=== PATIENT | male | born 1935 | race African-American/Black ===

== ENCOUNTER 2018-06-18 02:04 | Inpatient (IN) ==
[2018-06-18 02:48] LABS: Basophils # 0.1 10*3/uL (0.0-0.2); Basophils % 0.7 % (0.0-0.8); Eosinophils # 0.2 10*3/uL (0.0-0.87); Eosinophils % 1.6 % (0.00-10.9); Hematocrit 30.1 VOL% (42.0-52.0); Hemoglobin 9.5 GM/DL (14.0-18.0); Immature Granulocytes % 0.5 %; Immature Granulocytes Absolute 0.07 #; Lymphocytes # 1.4 10*3/uL (1.4-4.0); Lymphocytes % 10.8 % (21.2-54.2); Mean Corpuscular HGB Conc 31.6 GM/DL (32-36); Mean Corpuscular Hemoglobin 28 PG (27-34); Mean Corpuscular Volume 88.3 FL (87-102); Mean Platelet Volume 10.4 FL (9.6-12.0); Monocytes # 0.7 10*3/uL (0.11-0.8); Neutrophils # 10.5 10*3/uL (1.4-7.4); Neutrophils % 81.4 % (38.7-73.9); Platelet Count 342 T/CUMM (130-400); Red Blood Count 3.41 MC/CUMM (3.8-5.5); Red Cell Distribution Width 19.2 % (9.3-17.3); White Blood Count 12.9 T/CUMM (4-12)
[2018-06-18 02:50] LABS: VBG Base Excess -0.7 MEQ/L (0-4); VBG HCO3 23.4 MEQ/L (24-28); VBG Oxygen Saturation 69.5 %; VBG PCO2 53.6 MMHG (41-51); VBG PH 7.301; VBG PO2 43.7 MMHG (17-40)
[2018-06-18] MEDS ORDERED: ALBUTEROL NEB SOLN 5 MG/ML 20 ML/BOTTLE CONT NEB STA (02:53)
[2018-06-18 02:57] LABS: PT Patient Result 10.6 SECS; Partial Thromboplastin Time 22.5 SECS (0-40)
[2018-06-18 03:08] LABS: Bilirubin,Total 0.5 MG/DL (0.2-1.0); Calcium 8.3 MG/DL (8.5-10.1); Osmolality,Calculated 284.3 MOS/KG (273-304); Total Protein 7.1 G/DL (6.4-8.3)
[2018-06-18] MEDS ORDERED: FUROSEMIDE 100 MG/10 ML VIAL IV STA (03:19)
[2018-06-18] MEDS ORDERED: CEFEPIME 2,000 MG in SODIUM CHLORIDE 0.9% 100 ML IV STA ×2 (04:04→04:09)
[2018-06-18] MEDS ORDERED: VANCOMYCIN INJ 1,000 MG in SODIUM CHLORIDE 0.9% 250 ML IV STA (04:04)
[2018-06-18] MEDS ORDERED: AZITHROMYCIN 250 MG TABLET PO STA (04:10)
[2018-06-18] MEDS ORDERED: CEFEPIME 2,000 MG in SYRINGE 1 EACH IV STA (04:34)
[2018-06-18] MEDS ORDERED: ONDANSETRON 4 MG/2 ML VIAL IV PRN (05:16)
[2018-06-18] MEDS ORDERED: ACETAMINOPHEN 325 MG TABLET PO PRN (05:16)
[2018-06-18] MEDS ORDERED: GLUCAGON 1 MG VIAL IM PRN (05:16)
[2018-06-18] MEDS ORDERED: DOCUSATE SODIUM 100 MG CAPSULE PO PRN (05:16)
[2018-06-18] MEDS ORDERED: DEXTROSE 50% 25 GM/50 ML SYRINGE IV PRN (05:16)
[2018-06-18] MEDS ORDERED: MAGNESIUM SULF RIDER 4 GM in PREMIX 1 EACH IV PRN (05:23)
[2018-06-18] MEDS ORDERED: MAGNESIUM SULF RIDER 2 GM in PREMIX 1 EACH IV PRN (05:23)
[2018-06-18] MEDS ORDERED: ALBUTEROL 2.5 MG/3 ML NEB RESP TX PRN (05:27)
[2018-06-18] MEDS ORDERED: cefTRIAXone 1,000 MG in SYRINGE 1 EACH IV SCH (05:30)
[2018-06-18 05:52] LABS: Lactic Acid 2.1 MMOL/L (0.4-2.0)
[2018-06-18] MEDS: methylPREDNISolone SOD SUC 40 MG/1 ML VIAL IV SCH ×3 (07:17→21:01)
[2018-06-18] MEDS: ALBUTEROL/IPRATROPIUM 3 ML NEB RESP TX SCH ×3 (07:19→20:30)
[2018-06-18] MEDS: LEVOFLOXACIN INJ 750 MG in PREMIX 1 EACH IV SCH (07:24)
[2018-06-18] MEDS ORDERED: INFLUENZA VIRUS VACCINE 0.5 ML SYRINGE IM ONE (09:00)
[2018-06-18] MEDS ORDERED: PNEUMOCOCCAL VACCINE (13 VALENT) 0.5 ML SYRINGE IM ONE (09:00)
[2018-06-18] MEDS: INSULIN LISPRO 100 UNIT/ML SUBCUT SCH ×4 (09:22→20:52)
[2018-06-18] MEDS: ENOXAPARIN 40 MG/0.4 ML SYRINGE SUBCUT SCH (09:23)
[2018-06-18] MEDS: PIPERACILLIN/TAZOBACTAM 3,375 MG in SODIUM CHLORIDE 0.9% 100 ML IV SCH ×2 (11:27→15:05)
[2018-06-18] MEDS: MULTIVITAMIN (INTRINSIC) CAPSULE PO SCH (13:27)
[2018-06-18] MEDS: TAMSULOSIN 0.4 MG CAPSULE PO SCH (13:27)
[2018-06-18] MEDS: MAGNESIUM OXIDE 400 MG TABLET PO SCH ×2 (13:27→20:49)
[2018-06-18] MEDS: MEGESTROL 40 MG TABLET PO SCH (13:27)
[2018-06-18] MEDS: GLIMEPIRIDE 2 MG TABLET PO SCH (13:28)
[2018-06-18] MEDS: FUROSEMIDE 40 MG/4 ML VIAL IV SCH (15:09)
[2018-06-18] MEDS ORDERED: INSULIN GLARGINE 100 UNIT/ML SUBCUT SCH (21:00)
[2018-06-18] MEDS ORDERED: ATORVASTATIN 10 MG TABLET PO SCH (21:00)
[2018-06-19] MEDS: PIPERACILLIN/TAZOBACTAM 3,375 MG in SODIUM CHLORIDE 0.9% 100 ML IV SCH ×2 (00:55→08:27)
[2018-06-19] MEDS: ALBUTEROL/IPRATROPIUM 3 ML NEB RESP TX SCH ×2 (01:35→07:22)
[2018-06-19] MEDS: methylPREDNISolone SOD SUC 40 MG/1 ML VIAL IV SCH (05:02)
[2018-06-19] MEDS: LEVOFLOXACIN INJ 750 MG in PREMIX 1 EACH IV SCH (05:06)
[2018-06-19] MEDS ORDERED: AZITHROMYCIN INJ 500 MG in SODIUM CHLORIDE 0.9% 250 ML IV SCH (06:00)
[2018-06-19 06:24] LABS: Basophils % 0.1 % (0.0-0.8); Hematocrit 26.4 VOL% (42.0-52.0); Hemoglobin 8.7 GM/DL (14.0-18.0); Immature Granulocytes % 0.7 %; Immature Granulocytes Absolute 0.08 #; Lymphocytes # 0.8 10*3/uL (1.4-4.0); Lymphocytes % 7.2 % (21.2-54.2); Mean Corpuscular Hemoglobin 29 PG (27-34); Mean Corpuscular Volume 87.7 FL (87-102); Mean Platelet Volume 10.8 FL (9.6-12.0); Monocytes # 0.3 10*3/uL (0.11-0.8); Monocytes % 2.7 % (1.7-12.7); Neutrophils # 10.5 10*3/uL (1.4-7.4); Neutrophils % 89.3 % (38.7-73.9); Platelet Count 319 T/CUMM (130-400); Red Blood Count 3.01 MC/CUMM (3.8-5.5); Red Cell Distribution Width 19.8 % (9.3-17.3); White Blood Count 11.7 T/CUMM (4-12)
[2018-06-19 06:33] LABS: Potassium 4.3 MMOL/L (3.5-5.1)
[2018-06-19 07:54] VITALS: BP 138/84
[2018-06-19] MEDS: ENOXAPARIN 40 MG/0.4 ML SYRINGE SUBCUT SCH (08:27)
[2018-06-19] MEDS: INSULIN LISPRO 100 UNIT/ML SUBCUT SCH (08:27)
[2018-06-19] MEDS: FUROSEMIDE 40 MG/4 ML VIAL IV SCH (08:27)
[2018-06-19] MEDS: TAMSULOSIN 0.4 MG CAPSULE PO SCH (08:28)
[2018-06-19] MEDS: MAGNESIUM OXIDE 400 MG TABLET PO SCH (08:28)
[2018-06-19] MEDS: MULTIVITAMIN (INTRINSIC) CAPSULE PO SCH (08:28)
[2018-06-19] MEDS: GLIMEPIRIDE 2 MG TABLET PO SCH (08:28)
[2018-06-19] MEDS: MEGESTROL 40 MG TABLET PO SCH (08:28)
== END 2018-06-19 11:08 | disposition home or self-care (01) | DRG 291 ==
LOC: EDUNIT# → EDBD → N.ED 02:04 → N.EDINP 05:10 → N.3E 05:28
PROVIDERS: ADMIT Internal Medicine; ATTEND Internal Medicine

== ENCOUNTER 2018-07-13 03:30 | Observation (INO) | END 2018-07-13 23:59 | disposition hospice, home (50) | LOC: N.ADMINP | PROVIDERS: ADMIT Hospitalist; ATTEND Hospitalist ==

== ENCOUNTER 2018-12-01 09:59 | Observation (INO) ==
[~2018-12-01 09:59] MED LIST: DIAZEPAM 5 MG TABLET PO ONE; ceFAZolin 1,000 MG VIAL IRRIG ONE; ceFAZolin 1,000 MG in SYRINGE 1 EACH IV ONE; diphenhydrAMINE CAP 25 MG CAPSULE PO ONE
[2018-12-01 11:08] LABS: Basophils % 0.6 % (0.0-0.8); Eosinophils # 0.2 10*3/uL (0.0-0.87); Hematocrit 26.4 VOL% (42.0-52.0); Hemoglobin 8.6 GM/DL (14.0-18.0); Immature Granulocytes % 0.3 %; Immature Granulocytes Absolute 0.02 #; Lymphocytes # 1.4 10*3/uL (1.4-4.0); Lymphocytes % 21.9 % (21.2-54.2); Mean Corpuscular HGB Conc 32.6 GM/DL (32-36); Mean Corpuscular Volume 94.3 FL (87-102); Mean Platelet Volume 9.7 FL (9.6-12.0); Monocytes % 7.6 % (1.7-12.7); Neutrophils % 66.6 % (38.7-73.9); Platelet Count 332 T/CUMM (130-400); Red Cell Distribution Width 19.9 % (9.3-17.3); White Blood Count 6.3 T/CUMM (4-12)
[2018-12-01 11:18] LABS: PT Patient Result 10.8 SECS
[2018-12-01 11:28] LABS: Albumin 3.4 G/DL (3.4-5.0); Bilirubin,Total 0.8 MG/DL (0.2-1.0); Calcium 9.2 MG/DL (8.5-10.1); Osmolality,Calculated 281.4 MOS/KG (273-304); Total Protein 8.3 G/DL (6.4-8.3)
[2018-12-01] MEDS ORDERED: diphenhydrAMINE CAP 25 MG CAPSULE ONE (11:53)
[2018-12-01] MEDS: SODIUM CHLORIDE 0.9% 1,000 ML IV SCH (11:59)
[2018-12-01] MEDS ORDERED: LIDOCAINE 1%/EPI INJ 20 ML VIAL ONE (12:42)
[2018-12-01] MEDS ORDERED: ceFAZolin 1,000 MG VIAL ONE (12:42)
[2018-12-01] MEDS ORDERED: TISSUE ADHESIVE 1 EACH APPLICATOR TOP ONE (13:26)
[2018-12-01] MEDS ORDERED: ACETAMINOPHEN 325 MG TABLET PO PRN (13:31)
[2018-12-01] MEDS ORDERED: BUDESONIDE/FORMOTEROL 160-4.5 INHALER 6 GM INH PRN (13:32)
[2018-12-01] MEDS ORDERED: LIDOCAINE 2% 5 ML VIAL ONE (13:46)
[2018-12-01] MEDS ORDERED: fentaNYL 100 MCG/2 ML VIAL ONE (13:46)
[2018-12-01] MEDS ORDERED: PROPOFOL 200 MG/20 ML VIAL IV ONE (13:46)
[2018-12-01] MEDS ORDERED: ALBUTEROL 2.5 MG/3 ML NEB RESP TX PRN (19:00)
[2018-12-01 19:10] LABS: Basophils % 0.6 % (0.0-0.8); Eosinophils # 0.2 10*3/uL (0.0-0.87); Eosinophils % 2.4 % (0.00-10.9); Hematocrit 24.6 VOL% (42.0-52.0); Immature Granulocytes % 0.4 %; Immature Granulocytes Absolute 0.03 #; Lymphocytes # 1.1 10*3/uL (1.4-4.0); Lymphocytes % 15.4 % (21.2-54.2); Mean Corpuscular HGB Conc 32.5 GM/DL (32-36); Mean Corpuscular Volume 92.8 FL (87-102); Mean Platelet Volume 9.7 FL (9.6-12.0); Monocytes % 7.1 % (1.7-12.7); Neutrophils % 74.1 % (38.7-73.9); Platelet Count 302 T/CUMM (130-400); Red Blood Count 2.65 MC/CUMM (3.8-5.5); Red Cell Distribution Width 19.7 % (9.3-17.3); White Blood Count 7.2 T/CUMM (4-12)
[2018-12-01 19:27] LABS: Folate > 24.0 NG/ML (5.4-24.0); Vitamin B12 413 PG/ML (211-911)
[2018-12-01] MEDS: metFORMIN 500 MG TABLET PO SCH (21:45)
[2018-12-01] MEDS: TAMSULOSIN 0.4 MG CAPSULE PO SCH (21:45)
[2018-12-01] MEDS: CARVEDILOL 6.25 MG TABLET PO SCH (21:45)
[2018-12-01] MEDS: INSULIN GLARGINE 100 UNIT/ML SUBCUT SCH (21:45)
[2018-12-01] MEDS: ATORVASTATIN 10 MG TABLET PO SCH (21:46)
[2018-12-01] MEDS: ASCORBIC ACID 500 MG TABLET PO SCH (21:46)
[2018-12-01 22:10] LABS: Sedimentation Rate-Westergren 47 MM/HR (0-20)
[2018-12-01] MEDS: oxyCODONE/ACETAMINOPHEN 5-325 MG TABLET PO PRN (23:08)
[2018-12-02 05:02] LABS: Basophils % 0.5 % (0.0-0.8); Eosinophils # 0.2 10*3/uL (0.0-0.87); Eosinophils % 2.7 % (0.00-10.9); Hematocrit 22.7 VOL% (42.0-52.0); Hemoglobin 7.6 GM/DL (14.0-18.0); Immature Granulocytes % 0.5 %; Immature Granulocytes Absolute 0.03 #; Lymphocytes # 1.4 10*3/uL (1.4-4.0); Lymphocytes % 21.7 % (21.2-54.2); Mean Corpuscular HGB Conc 33.5 GM/DL (32-36); Mean Corpuscular Volume 93.4 FL (87-102); Mean Platelet Volume 9.5 FL (9.6-12.0); Monocytes % 8.8 % (1.7-12.7); Neutrophils % 65.8 % (38.7-73.9); Platelet Count 278 T/CUMM (130-400); Red Blood Count 2.43 MC/CUMM (3.8-5.5); White Blood Count 6.6 T/CUMM (4-12)
[2018-12-02 05:26] LABS: Calcium 8.5 MG/DL (8.5-10.1)
[2018-12-02] MEDS ORDERED: SODIUM CHLORIDE 0.9% 1,000 ML IV PRN (08:05)
[2018-12-02] MEDS: GLIMEPIRIDE 2 MG TABLET PO SCH (08:51)
[2018-12-02] MEDS: ASCORBIC ACID 500 MG TABLET PO SCH ×2 (08:51→21:27)
[2018-12-02] MEDS: DOCUSATE SODIUM 100 MG CAPSULE PO PRN (08:51)
[2018-12-02] MEDS: metFORMIN 500 MG TABLET PO SCH ×2 (08:51→21:27)
[2018-12-02] MEDS: ASPIRIN EC 81 MG TABLET PO SCH (08:51)
[2018-12-02] MEDS: LISINOPRIL 10 MG TABLET PO SCH (08:51)
[2018-12-02] MEDS: MULTIVITAMIN (INTRINSIC) CAPSULE PO SCH (08:51)
[2018-12-02] MEDS: FUROSEMIDE 40 MG TABLET PO SCH (08:52)
[2018-12-02] MEDS: CARVEDILOL 6.25 MG TABLET PO SCH ×2 (08:52→21:27)
[2018-12-02] MEDS: TAMSULOSIN 0.4 MG CAPSULE PO SCH ×2 (08:52→21:27)
[2018-12-02] MEDS: MEGESTROL 40 MG TABLET PO SCH (08:52)
[2018-12-02] MEDS: oxyCODONE/ACETAMINOPHEN 5-325 MG TABLET PO PRN ×2 (08:56→17:51)
[2018-12-02 09:10] LABS: Hemoglobin A1 (Alkaline) 97.7 % (96.5-98.5); Hemoglobin A2 (Alkaline) 2.3 % (1.5-3.5)
[2018-12-02] MEDS ORDERED: MAGNESIUM SULF RIDER 2 GM in PREMIX 1 EACH IV PRN (10:12)
[2018-12-02] MEDS ORDERED: MAGNESIUM SULF RIDER 4 GM in PREMIX 1 EACH IV PRN (10:12)
[2018-12-02] MEDS ORDERED: DEXTROSE 50% 25 GM/50 ML VIAL IV PRN (13:11)
[2018-12-02] MEDS ORDERED: GLUCAGON 1 MG VIAL IM PRN (13:11)
[2018-12-02] MEDS: INSULIN REGULAR 100 UNIT/ML SUBCUT SCH ×2 (17:32→21:27)
[2018-12-02] MEDS: INSULIN GLARGINE 100 UNIT/ML SUBCUT SCH (21:26)
[2018-12-02] MEDS: SODIUM CHLORIDE 0.9% 1,000 ML IV SCH (21:26)
[2018-12-02] MEDS: ATORVASTATIN 10 MG TABLET PO SCH (21:27)
[2018-12-03 05:23] LABS: Basophils % 0.5 % (0.0-0.8); Eosinophils # 0.2 10*3/uL (0.0-0.87); Eosinophils % 4.3 % (0.00-10.9); Hematocrit 22.6 VOL% (42.0-52.0); Hemoglobin 7.7 GM/DL (14.0-18.0); Immature Granulocytes % 0.4 %; Immature Granulocytes Absolute 0.02 #; Lymphocytes # 1.1 10*3/uL (1.4-4.0); Lymphocytes % 19.8 % (21.2-54.2); Mean Corpuscular HGB Conc 34.1 GM/DL (32-36); Mean Corpuscular Volume 93.4 FL (87-102); Mean Platelet Volume 9.9 FL (9.6-12.0); Platelet Count 273 T/CUMM (130-400); Red Blood Count 2.42 MC/CUMM (3.8-5.5); White Blood Count 5.6 T/CUMM (4-12)
[2018-12-03 05:40] LABS: Calcium 8.9 MG/DL (8.5-10.1)
[2018-12-03] MEDS: metFORMIN 500 MG TABLET PO SCH ×2 (08:17→21:49)
[2018-12-03] MEDS: INSULIN REGULAR 100 UNIT/ML SUBCUT SCH ×4 (08:17→21:49)
[2018-12-03] MEDS: GLIMEPIRIDE 2 MG TABLET PO SCH (08:17)
[2018-12-03] MEDS: FUROSEMIDE 40 MG TABLET PO SCH (08:50)
[2018-12-03] MEDS: LISINOPRIL 10 MG TABLET PO SCH (08:50)
[2018-12-03] MEDS: ASCORBIC ACID 500 MG TABLET PO SCH ×2 (08:50→21:49)
[2018-12-03] MEDS: CARVEDILOL 6.25 MG TABLET PO SCH ×2 (08:51→21:49)
[2018-12-03] MEDS: ASPIRIN EC 81 MG TABLET PO SCH (08:51)
[2018-12-03] MEDS: TAMSULOSIN 0.4 MG CAPSULE PO SCH ×2 (08:51→21:49)
[2018-12-03] MEDS: MEGESTROL 40 MG TABLET PO SCH (08:51)
[2018-12-03] MEDS: MULTIVITAMIN (INTRINSIC) CAPSULE PO SCH (08:51)
[2018-12-03 15:05] LABS: % Iron Saturation 16.6 % (18-50); Ferritin 662.1 ng/ml (26-388)
[2018-12-03] MEDS: ATORVASTATIN 10 MG TABLET PO SCH (21:49)
[2018-12-03] MEDS: INSULIN GLARGINE 100 UNIT/ML SUBCUT SCH (21:49)
[2018-12-04] MEDS: DOCUSATE SODIUM 100 MG CAPSULE PO PRN (00:25)
[2018-12-04 05:45] LABS: Basophils % 0.3 % (0.0-0.8); Eosinophils # 0.2 10*3/uL (0.0-0.87); Eosinophils % 2.9 % (0.00-10.9); Hematocrit 21.7 VOL% (42.0-52.0); Hemoglobin 7.3 GM/DL (14.0-18.0); Immature Granulocytes % 0.7 %; Lymphocytes # 1.4 10*3/uL (1.4-4.0); Lymphocytes % 23.6 % (21.2-54.2); Mean Corpuscular HGB Conc 33.6 GM/DL (32-36); Mean Corpuscular Volume 93.5 FL (87-102); Mean Platelet Volume 9.8 FL (9.6-12.0); Monocytes % 8.5 % (1.7-12.7); Platelet Count 271 T/CUMM (130-400); Red Blood Count 2.32 MC/CUMM (3.8-5.5); Red Cell Distribution Width 19.3 % (9.3-17.3); White Blood Count 5.9 T/CUMM (4-12)
[2018-12-04 05:46] LABS: Immature Granulocytes Absolute 0.04 #
[2018-12-04] MEDS: MULTIVITAMIN (INTRINSIC) CAPSULE PO SCH (08:51)
[2018-12-04] MEDS: INSULIN REGULAR 100 UNIT/ML SUBCUT SCH ×4 (08:51→21:37)
[2018-12-04] MEDS: ASPIRIN EC 81 MG TABLET PO SCH (08:51)
[2018-12-04] MEDS: LISINOPRIL 10 MG TABLET PO SCH (08:52)
[2018-12-04] MEDS: GLIMEPIRIDE 2 MG TABLET PO SCH (08:52)
[2018-12-04] MEDS: metFORMIN 500 MG TABLET PO SCH ×2 (08:52→21:34)
[2018-12-04] MEDS: TAMSULOSIN 0.4 MG CAPSULE PO SCH ×2 (08:53→21:37)
[2018-12-04] MEDS: FUROSEMIDE 40 MG TABLET PO SCH (08:53)
[2018-12-04] MEDS: MEGESTROL 40 MG TABLET PO SCH (08:53)
[2018-12-04] MEDS: ASCORBIC ACID 500 MG TABLET PO SCH ×2 (08:54→21:34)
[2018-12-04] MEDS: CARVEDILOL 6.25 MG TABLET PO SCH ×2 (08:54→21:37)
[2018-12-04 10:13] LABS: Albumin 2.8 G/DL (3.4-5.0); Bilirubin,Total 0.5 MG/DL (0.2-1.0); Calcium 8.6 MG/DL (8.5-10.1); Osmolality,Calculated 277.4 MOS/KG (273-304); Total Protein 6.4 G/DL (6.4-8.3)
[2018-12-04] MEDS ORDERED: IMMUNE GLOBULIN 10% 20 GM, IMMUNE GLOBULIN 10% 10 GM in PREMIX 1 EACH IV ONE (10:38)
[2018-12-04] MEDS ORDERED: methylPREDNISolone SOD SUC 40 MG/1 ML VIAL IV ONE (10:38)
[2018-12-04] MEDS ORDERED: diphenhydrAMINE 50 MG/1 ML VIAL IV ONE (10:39)
[2018-12-04] MEDS: predniSONE 20 MG TABLET PO SCH (12:23)
[2018-12-04] MEDS: FERROUS SULFATE 325 MG TABLET PO SCH ×2 (15:35→21:37)
[2018-12-04] MEDS: INSULIN GLARGINE 100 UNIT/ML SUBCUT SCH (21:36)
[2018-12-04] MEDS: ATORVASTATIN 10 MG TABLET PO SCH (21:48)
[2018-12-05 05:19] LABS: Basophils % 0.3 % (0.0-0.8); Eosinophils % 0.1 % (0.00-10.9); Hemoglobin 7.4 GM/DL (14.0-18.0); Immature Granulocytes % 0.6 %; Immature Granulocytes Absolute 0.04 #; Lymphocytes # 1.3 10*3/uL (1.4-4.0); Lymphocytes % 18.8 % (21.2-54.2); Mean Corpuscular HGB Conc 33.6 GM/DL (32-36); Mean Corpuscular Volume 93.6 FL (87-102); Mean Platelet Volume 9.8 FL (9.6-12.0); Monocytes % 9.1 % (1.7-12.7); Neutrophils % 71.1 % (38.7-73.9); Platelet Count 309 T/CUMM (130-400); Red Blood Count 2.35 MC/CUMM (3.8-5.5); Red Cell Distribution Width 19.9 % (9.3-17.3); White Blood Count 6.9 T/CUMM (4-12)
[2018-12-05 06:05] LABS: Calcium 9.3 MG/DL (8.5-10.1); Osmolality,Calculated 283.3 MOS/KG (273-304)
[2018-12-05] MEDS: ASPIRIN EC 81 MG TABLET PO SCH (08:33)
[2018-12-05] MEDS: MULTIVITAMIN (INTRINSIC) CAPSULE PO SCH (08:33)
[2018-12-05] MEDS: metFORMIN 500 MG TABLET PO SCH (08:34)
[2018-12-05] MEDS: ASCORBIC ACID 500 MG TABLET PO SCH (08:34)
[2018-12-05] MEDS: GLIMEPIRIDE 2 MG TABLET PO SCH (08:34)
[2018-12-05] MEDS: FUROSEMIDE 40 MG TABLET PO SCH (08:35)
[2018-12-05] MEDS: MEGESTROL 40 MG TABLET PO SCH (08:35)
[2018-12-05] MEDS: predniSONE 20 MG TABLET PO SCH (08:35)
[2018-12-05] MEDS: TAMSULOSIN 0.4 MG CAPSULE PO SCH (08:36)
[2018-12-05] MEDS: CARVEDILOL 6.25 MG TABLET PO SCH (08:36)
[2018-12-05] MEDS: FERROUS SULFATE 325 MG TABLET PO SCH (08:36)
[2018-12-05] MEDS: INSULIN REGULAR 100 UNIT/ML SUBCUT SCH (08:50)
[2018-12-05] MEDS ORDERED: DOCUSATE SODIUM 100 MG CAPSULE PO SCH (09:00)
[2018-12-05] MEDS ORDERED: LOSARTAN 25 MG TABLET PO SCH (09:00)
[2018-12-05] MEDS ORDERED: POLYETHYLENE GLYCOL POWDER 17 GM PACK PO SCH (09:00)
[2018-12-05 12:59] VITALS: BP 160/94
== END 2018-12-05 13:47 | disposition hospice, home (50) ==
LOC: N.TELEN 09:59 → N.CL 09:59 → N.TELEN 14:11
PROVIDERS: ADMIT Internal Medicine Cardiovascular Disease; ATTEND Internal Medicine Cardiovascular Disease
PROC: CLSCICD (2018-12-01 13:45)

== ENCOUNTER 2020-02-03 17:06 | Observation (INO) ==
[2020-02-03 17:35] LABS: Basophils % 0.3 % (0.0-0.8); Eosinophils # 0.1 10*3/uL (0.0-0.87); Eosinophils % 0.4 % (0.00-10.9); Hematocrit 31.7 VOL% (42.0-52.0); Hemoglobin 10.1 GM/DL (14.0-18.0); Immature Granulocytes % 1.3 %; Immature Granulocytes Absolute 0.19 #; Lymphocytes # 1.4 10*3/uL (1.4-4.0); Lymphocytes % 9.7 % (21.2-54.2); Mean Corpuscular HGB Conc 31.9 GM/DL (32-36); Mean Corpuscular Volume 90.6 FL (87-102); Mean Platelet Volume 10.8 FL (9.6-12.0); Monocytes % 4.3 % (1.7-12.7); Platelet Count 202 T/CUMM (130-400); Red Cell Distribution Width 15.1 % (9.3-17.3); White Blood Count 14.3 T/CUMM (4-12)
[2020-02-03 17:49] LABS: Albumin 2.9 G/DL (3.4-5.0); Bilirubin,Total 0.4 MG/DL (0.2-1.0); Calcium 8.4 MG/DL (8.5-10.1); Osmolality,Calculated 288.8 MOS/KG (273-304)
[2020-02-03 18:24] LABS: Apearance,Urine CLEAR (Clear); Bilirubin,Urine Negative (Negative); Blood, Urine Negative (Negative); Glucose,Urine (UA) 150 mg/dL (Negative); Ketones,Urine Negative (Negative); Mucus,Urine Occasional /LPF (Occasional); Nitrite,Urine Negative (Negative); Protein,Urine 30 MG/DL; RBC,Urine 1 /HPF (0-4); Squamous Epithelial Cell,Urine Occasional /HPF (0-10); Urine Color Yellow (Yellow); Urine Specific Gravity 1.015 (1.001-1.035); Urine Urobilinogen < 2.0 EU/DL (0.2-1.0); WBC,Urine <1 /HPF (0-6)
[2020-02-03] MEDS ORDERED: ONDANSETRON 4 MG/2 ML VIAL IV PRN (19:21)
[2020-02-03] MEDS ORDERED: ACETAMINOPHEN 325 MG TABLET PO PRN (19:21)
[2020-02-03] MEDS ORDERED: DEXTROSE 50% 25 GM/50 ML VIAL IV PRN (19:21)
[2020-02-03] MEDS ORDERED: GLUCAGON 1 MG VIAL IM PRN (19:21)
[2020-02-03] MEDS ORDERED: guaiFENesin/DM ER 600-30 MG TABLET PO PRN (19:21)
[2020-02-03] MEDS: SODIUM CHLORIDE 0.9% 1,000 ML IV SCH (20:55)
[2020-02-03] MEDS ORDERED: ENOXAPARIN 40 MG/0.4 ML SYRINGE SUBCUT SCH (21:00)
[2020-02-03] MEDS ORDERED: MAGNESIUM SULF RIDER 2 GM in PREMIX 1 EACH IV ONE (23:00)
[2020-02-03] MEDS: INSULIN REGULAR 100 UNIT/ML SUBCUT SCH (23:29)
[2020-02-04] MEDS: ALBUTEROL/IPRATROPIUM 3 ML NEB RESP TX SCH ×2 (01:25→07:15)
[2020-02-04] MEDS: SODIUM CHLORIDE 0.9% 1,000 ML IV SCH (04:42)
[2020-02-04 05:55] LABS: Basophils % 0.2 % (0.0-0.8); Eosinophils # 0.1 10*3/uL (0.0-0.87); Eosinophils % 0.5 % (0.00-10.9); Hematocrit 30.8 VOL% (42.0-52.0); Immature Granulocytes % 0.8 %; Lymphocytes # 1.5 10*3/uL (1.4-4.0); Lymphocytes % 11.9 % (21.2-54.2); Mean Corpuscular HGB Conc 32.5 GM/DL (32-36); Mean Corpuscular Volume 89.3 FL (87-102); Mean Platelet Volume 10.7 FL (9.6-12.0); Monocytes % 5.4 % (1.7-12.7); Neutrophils % 81.2 % (38.7-73.9); Platelet Count 194 T/CUMM (130-400); Red Blood Count 3.45 MC/CUMM (3.8-5.5); Red Cell Distribution Width 15.1 % (9.3-17.3); White Blood Count 12.1 T/CUMM (4-12)
[2020-02-04 07:35] VITALS: BP 120/59
[2020-02-04] MEDS: INSULIN REGULAR 100 UNIT/ML SUBCUT SCH (09:44)
== END 2020-02-04 10:25 | disposition home or self-care (01) ==
LOC: EDUNIT# → EDBD → N.ED 17:06 → INTOOBSV 19:21 → N.EDINP 19:21 → N.3E 21:16
PROVIDERS: ADMIT Internal Medicine Geriatric Medicine; ATTEND Internal Medicine Geriatric Medicine

== ENCOUNTER 2020-09-25 12:04 | Inpatient (IN) ==
[2020-09-25] MEDS ORDERED: SODIUM CHLORIDE 0.9% 1,000 ML IV STA (12:40)
[2020-09-25 13:06] LABS: Basophils % 0.8 % (0.0-0.8); Eosinophils # 0.1 10*3/uL (0.0-0.87); Eosinophils % 2.1 % (0.00-10.9); Hematocrit 40.8 VOL% (42.0-52.0); Hemoglobin 13.2 GM/DL (14.0-18.0); Immature Granulocytes % 1.9 %; Lymphocytes # 1.1 10*3/uL (1.4-4.0); Lymphocytes % 20.5 % (21.2-54.2); Mean Corpuscular HGB Conc 32.4 GM/DL (32-36); Mean Corpuscular Volume 90.3 FL (87-102); Mean Platelet Volume 10.9 FL (9.6-12.0); Monocytes % 8.1 % (1.7-12.7); Neutrophils % 66.6 % (38.7-73.9); Platelet Count 215 T/CUMM (130-400); Red Blood Count 4.52 MC/CUMM (3.8-5.5); Red Cell Distribution Width 16.5 % (9.3-17.3); White Blood Count 5.3 T/CUMM (4-12)
[2020-09-25 13:31] LABS: Alanine Aminotransferase 16 U/L (16-61); Albumin 3.7 G/DL (3.4-5.0); Alkaline Phosphatase 76 U/L (45-117); Aspartate Amino Transferase 17 U/L (0-37); Blood Urea Nitrogen 64 MG/DL (7-18); Calcium 10.2 MG/DL (8.5-10.1); Carbon Dioxide 23 MMOL/L (21-32); Estimated Glom Filtration Rate 19 ML/MIN; Glucose 98 MG/DL (74-106); Osmolality,Calculated 290.8 MOS/KG (273-304); Potassium 5.9 MMOL/L (3.5-5.1); Sodium 137 MMOL/L (136-145); Total Protein 8.8 G/DL (6.4-8.2); Troponin I < 0.015 NG/ML (0.00-0.045)
[2020-09-25 13:33] LABS: Bacteria,Urine Occasional /HPF (Few); Bilirubin,Urine Negative (Negative); Blood, Urine Negative (Negative); Glucose,Urine (UA) Negative (Negative); Hyaline Casts,Urine 4 /LPF (0-3); Ketones,Urine Negative (Negative); Mucus,Urine Occasional /LPF (Occasional); Nitrite,Urine Negative (Negative); Protein,Urine Negative; RBC,Urine 1 /HPF (0-4); Squamous Epithelial Cell,Urine Occasional /HPF (0-10); Urine Appearance CLEAR (Clear); Urine Color Yellow (Yellow); Urine Specific Gravity 1.013 (1.001-1.035); Urine Urobilinogen < 2.0 EU/DL (0.2-1.0)
[2020-09-25] MEDS ORDERED: DOCUSATE SODIUM 100 MG CAPSULE PO PRN (15:46)
[2020-09-25] MEDS ORDERED: ONDANSETRON 4 MG/2 ML VIAL IV PRN (15:46)
[2020-09-25] MEDS ORDERED: GLUCAGON 1 MG VIAL IM PRN (15:46)
[2020-09-25] MEDS ORDERED: DEXTROSE 50% 25 GM/50 ML VIAL IV PRN (15:46)
[2020-09-25] MEDS ORDERED: ACETAMINOPHEN 325 MG TABLET PO PRN (15:46)
[2020-09-25] MEDS ORDERED: SODIUM CHLORIDE 0.9% 1,000 ML IV SCH (16:00)
[2020-09-25 16:15] LABS: Risk Ratio 2.85; VLDL CHOLESTEROL 23.6 MG/DL
[2020-09-25] MEDS ORDERED: BUDESONIDE/FORMOTEROL 160-4.5 INHALER 6 GM INH PRN (16:19)
[2020-09-25] MEDS ORDERED: SODIUM POLYSTYRENE SULFATE 15 GM/60 ML BOTTLE PO ONE (16:28)
[2020-09-25] MEDS: ENOXAPARIN 30 MG/0.3 ML SYRINGE SUBCUT SCH (17:19)
[2020-09-25] MEDS ORDERED: ALBUTEROL 2.5 MG/3 ML NEB RESP TX PRN (19:00)
[2020-09-25] MEDS: carvediloL 6.25 MG TABLET PO SCH (21:25)
[2020-09-25] MEDS: TAMSULOSIN 0.4 MG CAPSULE PO SCH (21:26)
[2020-09-25] MEDS: ATORVASTATIN 80 MG TABLET PO SCH (21:26)
[2020-09-25] MEDS: AMITRIPTYLINE 25 MG TABLET PO SCH (21:26)
[2020-09-25] MEDS: ASCORBIC ACID 500 MG TABLET PO SCH (21:26)
[2020-09-26 01:15] LABS: Calcium 8.9 MG/DL (8.5-10.1); Osmolality,Calculated 299.1 MOS/KG (273-304)
[2020-09-26 01:21] LABS: Basophils % 0.5 % (0.0-0.8); Eosinophils # 0.1 10*3/uL (0.0-0.87); Eosinophils % 0.9 % (0.00-10.9); Immature Granulocytes % 0.9 %; Immature Granulocytes Absolute 0.05 #; Lymphocytes # 0.9 10*3/uL (1.4-4.0); Lymphocytes % 15.1 % (21.2-54.2); Mean Corpuscular HGB Conc 30.6 GM/DL (32-36); Mean Corpuscular Volume 92.7 FL (87-102); Monocytes % 8.8 % (1.7-12.7); Neutrophils % 73.8 % (38.7-73.9); Platelet Count 183 T/CUMM (130-400); Red Cell Distribution Width 16.1 % (9.3-17.3); White Blood Count 5.8 T/CUMM (4-12)
[2020-09-26 01:23] LABS: Hemoglobin 10.1 GM/DL (14.0-18.0); Red Blood Count 3.56 MC/CUMM (3.8-5.5)
[2020-09-26] MEDS: carvediloL 6.25 MG TABLET PO SCH ×2 (08:55→20:54)
[2020-09-26] MEDS: ASPIRIN EC 81 MG TABLET PO SCH (08:57)
[2020-09-26] MEDS: DUTASTERIDE 0.5 MG CAPSULE PO SCH (08:57)
[2020-09-26] MEDS: MEGESTROL 40 MG TABLET PO SCH (08:57)
[2020-09-26] MEDS: TAMSULOSIN 0.4 MG CAPSULE PO SCH ×2 (08:58→20:54)
[2020-09-26] MEDS: PANTOPRAZOLE 40 MG TABLET PO SCH (08:58)
[2020-09-26] MEDS: MULTIVITAMIN (INTRINSIC) CAPSULE PO SCH (08:58)
[2020-09-26] MEDS: ASCORBIC ACID 500 MG TABLET PO SCH ×2 (08:59→20:54)
[2020-09-26] MEDS: SODIUM CHLORIDE 0.9% 1,000 ML IV SCH ×2 (10:57→23:50)
[2020-09-26] MEDS: ENOXAPARIN 30 MG/0.3 ML SYRINGE SUBCUT SCH (18:26)
[2020-09-26] MEDS: ATORVASTATIN 80 MG TABLET PO SCH (20:54)
[2020-09-26] MEDS: AMITRIPTYLINE 25 MG TABLET PO SCH (20:54)
[2020-09-27] MEDS: SODIUM CHLORIDE 0.9% 1,000 ML IV SCH ×2 (03:34→16:59)
[2020-09-27 06:21] LABS: Basophils # 0.1 10*3/uL (0.0-0.2); Basophils % 0.9 % (0.0-0.8); Eosinophils # 0.2 10*3/uL (0.0-0.87); Eosinophils % 2.8 % (0.00-10.9); Hematocrit 30.5 VOL% (42.0-52.0); Hemoglobin 9.8 GM/DL (14.0-18.0); Immature Granulocytes % 0.5 %; Immature Granulocytes Absolute 0.03 #; Lymphocytes # 1.2 10*3/uL (1.4-4.0); Lymphocytes % 19.9 % (21.2-54.2); Mean Corpuscular HGB Conc 32.1 GM/DL (32-36); Mean Corpuscular Volume 90.8 FL (87-102); Mean Platelet Volume 12.1 FL (9.6-12.0); Monocytes % 9.3 % (1.7-12.7); Neutrophils % 66.6 % (38.7-73.9); Platelet Count 141 T/CUMM (130-400); Red Blood Count 3.36 MC/CUMM (3.8-5.5); Red Cell Distribution Width 16.5 % (9.3-17.3); White Blood Count 5.8 T/CUMM (4-12)
[2020-09-27 06:32] LABS: Calcium 8.4 MG/DL (8.5-10.1); Osmolality,Calculated 282.7 MOS/KG (273-304); Potassium 3.5 MMOL/L (3.5-5.1)
[2020-09-27] MEDS: PANTOPRAZOLE 40 MG TABLET PO SCH (08:40)
[2020-09-27] MEDS: ASCORBIC ACID 500 MG TABLET PO SCH ×2 (08:40→21:35)
[2020-09-27] MEDS: TAMSULOSIN 0.4 MG CAPSULE PO SCH ×2 (08:40→21:35)
[2020-09-27] MEDS: ASPIRIN EC 81 MG TABLET PO SCH (08:40)
[2020-09-27] MEDS: carvediloL 6.25 MG TABLET PO SCH ×2 (08:40→21:37)
[2020-09-27] MEDS: MULTIVITAMIN (INTRINSIC) CAPSULE PO SCH (08:40)
[2020-09-27] MEDS: DUTASTERIDE 0.5 MG CAPSULE PO SCH (08:41)
[2020-09-27] MEDS: MEGESTROL 40 MG TABLET PO SCH (10:43)
[2020-09-27] MEDS: ENOXAPARIN 30 MG/0.3 ML SYRINGE SUBCUT SCH (16:46)
[2020-09-27] MEDS: ATORVASTATIN 80 MG TABLET PO SCH (21:35)
[2020-09-27] MEDS: AMITRIPTYLINE 25 MG TABLET PO SCH (21:35)
[2020-09-28 05:05] LABS: Basophils % 0.5 % (0.0-0.8); Eosinophils # 0.1 10*3/uL (0.0-0.87); Eosinophils % 1.7 % (0.00-10.9); Hematocrit 29.2 VOL% (42.0-52.0); Hemoglobin 9.7 GM/DL (14.0-18.0); Immature Granulocytes % 0.9 %; Immature Granulocytes Absolute 0.05 #; Lymphocytes # 0.8 10*3/uL (1.4-4.0); Lymphocytes % 13.5 % (21.2-54.2); Mean Corpuscular HGB Conc 33.2 GM/DL (32-36); Mean Corpuscular Volume 86.6 FL (87-102); Mean Platelet Volume 11.2 FL (9.6-12.0); Monocytes % 11.4 % (1.7-12.7); Platelet Count 146 T/CUMM (130-400); Red Blood Count 3.37 MC/CUMM (3.8-5.5); Red Cell Distribution Width 16.3 % (9.3-17.3); White Blood Count 5.9 T/CUMM (4-12)
[2020-09-28 05:41] LABS: Calcium 8.3 MG/DL (8.5-10.1); Osmolality,Calculated 293.3 MOS/KG (273-304); Potassium 3.7 MMOL/L (3.5-5.1)
[2020-09-28] MEDS: DUTASTERIDE 0.5 MG CAPSULE PO SCH (08:10)
[2020-09-28] MEDS: TAMSULOSIN 0.4 MG CAPSULE PO SCH (08:10)
[2020-09-28] MEDS: ASCORBIC ACID 500 MG TABLET PO SCH (08:10)
[2020-09-28] MEDS: carvediloL 6.25 MG TABLET PO SCH (08:10)
[2020-09-28] MEDS: PANTOPRAZOLE 40 MG TABLET PO SCH (08:10)
[2020-09-28] MEDS: MEGESTROL 40 MG TABLET PO SCH (08:10)
[2020-09-28] MEDS: ASPIRIN EC 81 MG TABLET PO SCH (08:10)
[2020-09-28] MEDS: MULTIVITAMIN (INTRINSIC) CAPSULE PO SCH (08:10)
[2020-09-28 11:13] VITALS: BP 122/64
== END 2020-09-28 14:03 | disposition swing bed (61) | DRG 683 ==
LOC: N.ED 12:04 → N.EDINP 15:01 → N.3E 16:57
PROVIDERS: ADMIT Internal Medicine; ATTEND Internal Medicine